=== PATIENT | male | born 1995 | race Caucasian/White ===

== ENCOUNTER 2016-07-12 09:06 | Inpatient (IN) | payer OTHER ==
[~2016-07-12] VITALS: Ht 172.7 cm; Wt 80.3 kg
[~2016-07-12 09:06] MED LIST: ALBU2TAB44; LORA0.5T2 PO; MONT10TA21
[2016-07-12] MEDS ORDERED: ALBUTEROL (0.083%) 2.5MG/3ML NEB HHN STA ×2 (09:34→12:39)
[2016-07-12] MEDS ORDERED: METHYLPREDNISOLONE SOD SUCC 125 MG/2 ML VIAL IV STA (09:34)
[2016-07-12] MEDS ORDERED: IPRATROPIUM BROMIDE (0.02%) 0.5MG/2.5ML NEB HHN STA (09:34)
[2016-07-12] MEDS ORDERED: ALBUTEROL (0.083%) 2.5MG/3ML NEB HHN ONE (11:15)
[2016-07-12] MEDS ORDERED: MAGNESIUM 2 G PREMIX 50 ML IV STA (12:39)
[2016-07-12] MEDS ORDERED: ALBUTEROL (0.083%) 2.5MG/3ML NEB ONE (13:28)
[2016-07-12] MEDS ORDERED: METHYLPREDNISOLONE SOD SUCC 125 MG/2 ML VIAL IV SCH (14:30)
[2016-07-12] MEDS ORDERED: IPRATROPIUM/ALBUTEROL 0.5-3(2.5)MG/3ML NEB INH PRN (14:30)
[2016-07-12] MEDS ORDERED: CLONIDINE 0.1MG TABLET PO PRN (14:30)
[2016-07-12] MEDS ORDERED: DIPHENHYDRAMINE 50MG/ML VIAL IV PRN (14:30)
[2016-07-12] MEDS ORDERED: ONDANSETRON HCL 4MG/2ML VIAL IV PRN (14:30)
[2016-07-12] MEDS ORDERED: ACETAMINOPHEN 325MG TABLET PO PRN (14:30)
[2016-07-12] MEDS ORDERED: HYDROCODONE/ACETAMINOPHEN 5/325MG TABLET PO PRN (14:30)
[2016-07-12] MEDS ORDERED: LEVOFLOXACIN 500MG PREMIX 100ML IV NR (16:45)
[2016-07-12 17:20] LABS: CLARITY URINE CLEAR (CLEAR); COLOR URINE YELLOW (YELLOW); GLUCOSE URINE TRACE (NEGATIVE); KETONES URINE NEGATIVE (NEGATIVE); LEUKOCYTE ESTERASE URINE NEGATIVE (NEGATIVE); NITRITE URINE NEGATIVE (NEGATIVE); OCCULT BLOOD URINE NEGATIVE (NEGATIVE); PH URINE 7.5 (4.5-8.0); PROTEIN URINE NEGATIVE (NEGATIVE); SPECIFIC GRAVITY URINE 1.017 (1.005-1.030); UROBILINOGEN URINE 0.2 E.U./dL (0.2-1.0)
[2016-07-12 17:40] LABS: MUCUS URINE TRACE /lpf (NONE/TRACE); RBC URINE 0-2 /hpf (0-2); SQUAMOUS EPITHELIAL CELL URINE RARE /lpf (RARE/1+); WBC URINE 0-2 /hpf (0-2)
[2016-07-12 17:41] LABS: BACTERIA URINE TRACE
[2016-07-12 17:53] LABS: *AMPHETAMINES SCREEN URINE NEGATIVE (NEGATIVE); *BARBITURATES SCREEN URINE NEGATIVE (NEGATIVE); *BENZODIAZEPINES SCREEN URINE NEGATIVE (NEGATIVE); *COCAINE SCREEN URINE NEGATIVE (NEGATIVE); CANNABINOID URINE SCREEN PRESUMTIVE POSITIVE (NEGATIVE); ECSTASY MDMA SCREEN URINE NEGATIVE (NEGATIVE); METHADONE URINE SCREEN NEGATIVE (NEGATIVE); OPIATES URINE SCREEN NEGATIVE (NEGATIVE); PHENCYCLIDINE URINE SCREEN NEGATIVE (NEGATIVE)
[2016-07-12 22:57] VITALS: BP 116/64
[2016-07-13] VITALS: BP 116/64
[2016-07-13] MEDS ORDERED: LORAZEPAM 0.5MG TABLET PO PRN (02:30)
[2016-07-13] MEDS: IPRATROPIUM/ALBUTEROL 0.5-3(2.5)MG/3ML NEB INH SCH ×3 (03:53→12:45)
[2016-07-13 04:00] VITALS: BP 115/71
[2016-07-13] MEDS ORDERED: METHYLPREDNISOLONE SOD SUCC 125 MG/2 ML VIAL IV SCH (06:00)
[2016-07-13 06:58] LABS: BASOPHILS % 0.1 % (0.0-2.0); EOSINOPHILS % 0.1 % (0.0-5.0); HEMATOCRIT. 44.5 % (42.0-52.0); HEMOGLOBIN. 15.1 g/dL (14.0-18.0); LYMPHOCYTES % 10.5 % (20.0-50.0); MEAN CORPUSCULAR HEMOGLOBIN 30.1 pg (28.0-32.0); MEAN CORPUSCULAR HGB CONC 33.9 g/dL (31.0-37.0); MEAN CORPUSCULAR VOLUME 88.6 fL (80.0-94.0); MEAN PLATELET VOLUME 7.8 fl (7.4-10.4); MONOCYTES % 6.8 % (2.0-8.0); NEUTROPHILS % 82.5 % (40.0-76.0); PLATELET 352 x1000/uL (130-400); RED BLOOD CELL COUNT 5.02 mill/uL (4.7-6.1); RED CELL DISTRIBUTION WIDTH 14.2 % (11.6-14.6); WHITE BLOOD COUNT 8.9 x1000/uL (4.5-11.0)
[2016-07-13 07:09] LABS: ALANINE AMINOTRANSFERASE 38 IU/L (13-61); ALBUMIN 4.1 g/dL (3.4-5.0); ANION GAP 13; CALCIUM 9.2 mg/dL (8.5-10.1); CARBON DIOXIDE 27 mEq/L (21-32); CHLORIDE 103 mEq/L (98-107); HDL CHOLESTEROL 85 mg/dL (40-59); INDEX HEMOLYSI 1 (1-3); INDEX ICTERIC 1 (1-4); INDEX LIPEMIC 1 (1-3); LDL CHOLESTEROL 192 mg/dL (5-100); TRIGLYCERIDE 73 mg/dL (0-150); UREA NITROGEN BLOOD 12 mg/dL (7-21); eGFR > 60 mL/min (>60)
[2016-07-13 08:00] VITALS: BP 102/73
[2016-07-13] MEDS ORDERED: MONTELUKAST SODIUM 10MG TABLET PO SCH (09:00)
[2016-07-13 12:00] VITALS: BP 115/74
[2016-07-13 12:30] VITALS: BP 115/74
[2016-07-13] MEDS ORDERED: LEVOFLOXACIN 500MG PREMIX 100 ML IV SCH (14:00)
[2016-07-13] MEDS ORDERED: ATORVASTATIN CALCIUM 20MG TABLET PO SCH (21:00)
== END 2016-07-13 13:15 | disposition home or self-care (01) | DRG 141 ==
LOC: ER 09:43 → 8WST 14:16
PROVIDERS: ADMIT Internal Medicine; ATTEND Internal Medicine
DX: J45.901 Unspecified asthma with (acute) exacerbation (principal); E78.5 Hyperlipidemia, unspecified; F12.90 Cannabis use, unspecified, uncomplicated; F41.9 Anxiety disorder, unspecified; R73.9 Hyperglycemia, unspecified
CPT/HCPCS: 36415; 71010; 80053; 80061; 80305; 81001; 83036; 85025; 87040; 87086; 94640; 94644; 94664; 96365; 96367; 96375; 96376; 99285; J1200; J1956; J2930; J3475; J7611; J7620

== ENCOUNTER 2016-08-10 12:58 | Emergency (ER) | payer OTHER ==
[~2016-08-10] VITALS: Ht 172.7 cm; Wt 78.0 kg
[2016-08-10] MEDS ORDERED: IPRATROPIUM BROMIDE (0.02%) 0.5MG/2.5ML NEB HHN STA (13:15)
[2016-08-10] MEDS ORDERED: MAGNESIUM 2 G PREMIX 50 ML IV ONE (13:15)
[2016-08-10] MEDS ORDERED: METHYLPREDNISOLONE SOD SUCC 125 MG/2 ML VIAL IV STA (13:15)
[2016-08-10] MEDS ORDERED: ALBUTEROL (0.083%) 2.5MG/3ML NEB HHN STA (13:15)
[2016-08-10 13:26] VITALS: BP 131/88
[2016-08-10 13:32] LABS: BASOPHILS % 0.5 % (0.0-2.0); EOSINOPHILS % 1.9 % (0.0-5.0); HEMATOCRIT. 48.3 % (42.0-52.0); HEMOGLOBIN. 16.5 g/dL (14.0-18.0); LYMPHOCYTES % 9.5 % (20.0-50.0); MEAN CORPUSCULAR HEMOGLOBIN 30.2 pg (28.0-32.0); MEAN CORPUSCULAR VOLUME 88.5 fL (80.0-94.0); MEAN PLATELET VOLUME 7.3 fl (7.4-10.4); MONOCYTES % 6.3 % (2.0-8.0); NEUTROPHILS % 81.8 % (40.0-76.0); PLATELET 305 x1000/uL (130-400); RED BLOOD CELL COUNT 5.46 mill/uL (4.7-6.1); RED CELL DISTRIBUTION WIDTH 13.8 % (11.6-14.6)
[2016-08-10 13:36] LABS: INR 1.1; PROTHROMBIN TIME 11.2 sec
[2016-08-10 13:43] LABS: CARBON DIOXIDE 30 mEq/L (21-32); CHLORIDE 101 mEq/L (98-107); ETHANOL BLOOD < 10 mg/dL
[2016-08-10 13:45] LABS: TROPONIN I < 0.02 ng/mL (0.00-0.04)
[2016-08-10] MEDS ORDERED: IPRATROPIUM/ALBUTEROL 0.5-3(2.5)MG/3ML NEB HHN ONE (15:00)
== END 2016-08-10 15:54 | disposition home or self-care (01) ==
LOC: ER 13:13
DX: J45.901 Unspecified asthma with (acute) exacerbation (principal); F41.9 Anxiety disorder, unspecified; F12.10 Cannabis abuse, uncomplicated
CPT/HCPCS: 36415; 71010; 71020; 80053; 83880; 84484; 85025; 85610; 94640; 96365; 96375; 99291; G0482; J2930; J3475; J7611; J7620

== ENCOUNTER 2016-08-10 19:13 | Inpatient (IN) | payer OTHER ==
[~2016-08-10] VITALS: Ht 170.2 cm; Wt 76.7 kg
[2016-08-10] MEDS ORDERED: ALBUTEROL (0.083%) 2.5MG/3ML NEB HHN STA (20:07)
[2016-08-10] MEDS ORDERED: IPRATROPIUM BROMIDE (0.02%) 0.5MG/2.5ML NEB HHN STA (20:07)
[2016-08-10] MEDS ORDERED: METHYLPREDNISOLONE SOD SUCC 125 MG/2 ML VIAL IV STA (20:07)
[2016-08-10] MEDS ORDERED: MAGNESIUM 2 G PREMIX 50 ML IV ONE (20:15)
[2016-08-10] MEDS ORDERED: SODIUM CHLORIDE 0.9% 1,000 ML IV ONE (23:47)
[2016-08-11] MEDS ORDERED: MAGNESIUM/ALUMINUM HYDROXIDE/SIMETHICONE 30ML UDC PO PRN
[2016-08-11] MEDS ORDERED: CLONIDINE 0.1MG TABLET PO PRN
[2016-08-11] MEDS ORDERED: ACETAMINOPHEN 325MG TABLET PO PRN
[2016-08-11] MEDS ORDERED: ONDANSETRON HCL 4MG/2ML VIAL IV PRN
[2016-08-11] MEDS ORDERED: IPRATROPIUM/ALBUTEROL 0.5-3(2.5)MG/3ML NEB INH PRN
[2016-08-11 00:27] LABS: CHLORIDE 102 mEq/L (98-107)
[2016-08-11 00:37] LABS: CARBON DIOXIDE 24 mEq/L (21-32)
[2016-08-11 03:45] VITALS: BP 116/75
[2016-08-11 04:05] VITALS: BP 116/75
[2016-08-11] MEDS ORDERED: METHYLPREDNISOLONE SOD SUCC 40 MG/ML VIAL IV SCH (06:00)
[2016-08-11 06:52] LABS: CREATINE KINASE 125 IU/L (39-308); CREATINE KINASE MB FRACTION 2.1 ng/mL (0.5-3.6); TROPONIN I < 0.02 ng/mL (0.00-0.04)
[2016-08-11 07:04] LABS: HEMATOCRIT. 44.5 % (42.0-52.0); HEMOGLOBIN. 15.2 g/dL (14.0-18.0); MEAN CORPUSCULAR HEMOGLOBIN 30.5 pg (28.0-32.0); MEAN CORPUSCULAR VOLUME 89.3 fL (80.0-94.0); MEAN PLATELET VOLUME 7.7 fl (7.4-10.4); PLATELET 280 x1000/uL (130-400); RED BLOOD CELL COUNT 4.98 mill/uL (4.7-6.1); RED CELL DISTRIBUTION WIDTH 14.1 % (11.6-14.6)
[2016-08-11 08:00] VITALS: BP 106/73
[2016-08-11] MEDS ORDERED: ENOXAPARIN 40MG/0.4ML SYR SUBCUT SCH (09:00)
[2016-08-11] MEDS ORDERED: BUDESONIDE 0.5MG/2ML NEB HHN SCH (09:00)
[2016-08-11 12:00] VITALS: BP 120/81
[2016-08-11 13:56] LABS: PLATELET ESTIMATE NORMAL
[2016-08-11 14:14] VITALS: BP 120/81
== END 2016-08-11 14:25 | disposition home or self-care (01) | DRG 141 ==
LOC: ER 20:05 → 6WST 23:49 → EDBEDREQTM 23:50 → EDBEDREQ 23:50 → ENRESERV 08-11 01:49
PROVIDERS: ADMIT Internal Medicine; ATTEND Internal Medicine
DX: J45.901 Unspecified asthma with (acute) exacerbation (principal); E78.5 Hyperlipidemia, unspecified; F12.90 Cannabis use, unspecified, uncomplicated; F41.9 Anxiety disorder, unspecified; R73.9 Hyperglycemia, unspecified; Z87.09 Personal history of other diseases of the respiratory system
CPT/HCPCS: 36415; 71010; 80048; 80061; 82550; 82553; 83735; 84484; 85025; 87040; 93970; 94644; 96365; 96375; 99285; J1650; J2920; J2930; J3475; J7030; J7611

== ENCOUNTER 2016-09-03 11:28 | Inpatient (IN) | payer OTHER ==
[~2016-09-03] VITALS: Ht 172.7 cm; Wt 83.9 kg
[2016-09-03] MEDS ORDERED: METHYLPREDNISOLONE SOD SUCC 125 MG/2 ML VIAL IM SCH (14:00)
[2016-09-03] MEDS ORDERED: IPRATROPIUM/ALBUTEROL 0.5-3(2.5)MG/3ML NEB HHN ONE ×2 (14:00→16:45)
[2016-09-03] MEDS ORDERED: IPRATROPIUM/ALBUTEROL 0.5-3(2.5)MG/3ML NEB HHN NR (15:00)
[2016-09-03] MEDS ORDERED: MAGNESIUM 2 G PREMIX 50 ML IV ONE (15:15)
[2016-09-03 15:46] LABS: HEMATOCRIT. 44.4 % (42.0-52.0); HEMOGLOBIN. 15.1 g/dL (14.0-18.0); MEAN CORPUSCULAR HEMOGLOBIN 30.8 pg (28.0-32.0); MEAN CORPUSCULAR VOLUME 90.5 fL (80.0-94.0); MEAN PLATELET VOLUME 7.2 fl (7.4-10.4); PLATELET 323 x1000/uL (130-400); RED BLOOD CELL COUNT 4.91 mill/uL (4.7-6.1); RED CELL DISTRIBUTION WIDTH 14.1 % (11.6-14.6)
[2016-09-03 15:54] LABS: CARBON DIOXIDE 28 mEq/L (21-32); CHLORIDE 99 mEq/L (98-107)
[2016-09-03] MEDS ORDERED: LEVOFLOXACIN 750MG PREMIX 150 ML IV ONE (16:45)
[2016-09-03 16:50] LABS: PLATELET ESTIMATE NORMAL
[2016-09-03 17:17] LABS: BG BASE EXCESS -3.1 mmol/L (-2.0-2.0); BG BILEVEL POS AIRWAY PRESSURE 15/5; BG CARBOXYHEMOGLOBIN 0.4 % (0.5-1.5); BG DEOXYHEMOGLOBIN 0.4 % (0.0-5.0); BG HCO3 ACT 23.3 mmol/L (22.0-26.0); BG METHEMOGLOBIN 0.5 % (0.0-1.5); BG OXYGEN SATURATION 99.6 % (92.0-98.5); BG OXYHEMOGLOBIN 98.7 % (94.0-97.0); BG PH 7.314 (7.350-7.450); BG SAMPLE SITE RIGHT RADIAL; BG TOTAL HEMOGLOBIN 13.8 g/dL (12.0-18.0); BG VENT MODE MASK - BIPAP; BG VENT RATE 16 set
[2016-09-03] MEDS ORDERED: GUAIFENESIN 200MG/10ML SUGAR FREE UDC PO PRN (18:15)
[2016-09-03] MEDS ORDERED: ACETAMINOPHEN 325MG TABLET PO PRN (18:15)
[2016-09-03] MEDS ORDERED: IPRATROPIUM/ALBUTEROL 0.5-3(2.5)MG/3ML NEB INH PRN (18:15)
[2016-09-03] MEDS ORDERED: DOCUSATE SODIUM 100MG CAPSULE PO PRN (18:15)
[2016-09-03] MEDS ORDERED: ONDANSETRON HCL 4MG/2ML VIAL IV PRN (18:15)
[2016-09-03] MEDS ORDERED: MAGNESIUM/ALUMINUM HYDROXIDE/SIMETHICONE 30ML UDC PO PRN (18:15)
[2016-09-03] MEDS ORDERED: CLONIDINE 0.1MG TABLET PO PRN (18:15)
[2016-09-03] MEDS ORDERED: CEFTRIAXONE 1 G PREMIX 50 ML IV NR (19:09)
[2016-09-03 20:19] LABS: CHLORIDE 104 mEq/L (98-107)
[2016-09-03 20:25] LABS: CARBON DIOXIDE 21 mEq/L (21-32)
[2016-09-03] MEDS ORDERED: VENL-179 PO (22:10)
[2016-09-03 22:53] LABS: CLARITY URINE CLEAR (CLEAR); COLOR URINE YELLOW (YELLOW); KETONES URINE NEGATIVE (NEGATIVE); LEUKOCYTE ESTERASE URINE NEGATIVE (NEGATIVE); NITRITE URINE NEGATIVE (NEGATIVE); OCCULT BLOOD URINE NEGATIVE (NEGATIVE); PROTEIN URINE NEGATIVE (NEGATIVE); SPECIFIC GRAVITY URINE 1.022 (1.005-1.030); UROBILINOGEN URINE 0.2 E.U./dL (0.2-1.0)
[2016-09-03 23:05] LABS: *AMPHETAMINES SCREEN URINE NEGATIVE (NEGATIVE); *BARBITURATES SCREEN URINE NEGATIVE (NEGATIVE); *BENZODIAZEPINES SCREEN URINE NEGATIVE (NEGATIVE); *COCAINE SCREEN URINE NEGATIVE (NEGATIVE); CANNABINOID URINE SCREEN PRESUMTIVE POSITIVE (NEGATIVE); METHADONE URINE SCREEN NEGATIVE (NEGATIVE); OPIATES URINE SCREEN PRESUMTIVE POSITIVE (NEGATIVE); PHENCYCLIDINE URINE SCREEN NEGATIVE (NEGATIVE)
[2016-09-03 23:23] LABS: CREATINE KINASE 385 IU/L (39-308); CREATINE KINASE MB FRACTION 3.6 ng/mL (0.5-3.6); TROPONIN I < 0.02 ng/mL (0.00-0.04)
[2016-09-03] MEDS: METHYLPREDNISOLONE SOD SUCC 40 MG/ML VIAL IV SCH (23:27)
[2016-09-03] MEDS: AZITHROMYCIN 500 MG TABLET PO SCH (23:27)
[2016-09-03] MEDS: SODIUM CHLORIDE 0.9% 1,000 ML IV SCH (23:28)
[2016-09-04] MEDS ORDERED: CEFTRIAXONE 1 G PREMIX 50 ML IV SCH
[2016-09-04] MEDS: IPRATROPIUM/ALBUTEROL 0.5-3(2.5)MG/3ML NEB INH SCH ×6 (00:08→21:03)
[2016-09-04 05:26] LABS: HEMATOCRIT. 40.5 % (42.0-52.0); HEMOGLOBIN. 13.6 g/dL (14.0-18.0); MEAN CORPUSCULAR HEMOGLOBIN 30.2 pg (28.0-32.0); MEAN CORPUSCULAR VOLUME 89.8 fL (80.0-94.0); MEAN PLATELET VOLUME 7.4 fl (7.4-10.4); PLATELET 278 x1000/uL (130-400); RED BLOOD CELL COUNT 4.51 mill/uL (4.7-6.1); RED CELL DISTRIBUTION WIDTH 14.2 % (11.6-14.6)
[2016-09-04] MEDS: METHYLPREDNISOLONE SOD SUCC 40 MG/ML VIAL IV SCH ×3 (05:57→21:25)
[2016-09-04 06:15] LABS: CREATINE KINASE 365 IU/L (39-308); CREATINE KINASE MB FRACTION 3.9 ng/mL (0.5-3.6); HDL CHOLESTEROL 59 mg/dL (40-59); LDL CHOLESTEROL 143 mg/dL (5-100); TROPONIN I < 0.02 ng/mL (0.00-0.04)
[2016-09-04] MEDS: AZITHROMYCIN 500 MG TABLET PO SCH (08:51)
[2016-09-04] MEDS: ENOXAPARIN 40MG/0.4ML SYR SUBCUT SCH (08:52)
[2016-09-04] MEDS: SODIUM CHLORIDE 0.9% 1,000 ML IV SCH (12:38)
[2016-09-04] MEDS: LORAZEPAM 0.5MG TABLET PO PRN ×2 (14:31→21:25)
[2016-09-04] MEDS: VENLAFAXINE HCL 37.5MG SR CAPSULE 24HR PO SCH (16:09)
[2016-09-04] MEDS ORDERED: ATORVASTATIN CALCIUM 20MG TABLET PO SCH (21:00)
[2016-09-05] MEDS ORDERED: CEFTRIAXONE 1 G PREMIX 50 ML IV SCH
[2016-09-05] MEDS: IPRATROPIUM/ALBUTEROL 0.5-3(2.5)MG/3ML NEB INH SCH ×4 (00:19→13:05)
[2016-09-05] MEDS: SODIUM CHLORIDE 0.9% 1,000 ML IV SCH (00:30)
[2016-09-05] MEDS: METHYLPREDNISOLONE SOD SUCC 40 MG/ML VIAL IV SCH ×2 (05:15→13:19)
[2016-09-05 08:20] LABS: PLATELET ESTIMATE NORMAL
[2016-09-05 08:44] LABS: BG BASE EXCESS 0.3 mmol/L (-2.0-2.0); BG CARBOXYHEMOGLOBIN 0.3 % (0.5-1.5); BG FRACTION INSPIRED OXYGEN 21; BG HCO3 ACT 23.2 mmol/L (22.0-26.0); BG METHEMOGLOBIN 0.4 % (0.0-1.5); BG OXYHEMOGLOBIN 94.3 % (94.0-97.0); BG PCO2 32.9 mmHg (35.0-45.0); BG PH 7.466 (7.350-7.450); BG PO2 72.7 mmHg (75.0-100.0); BG SAMPLE SITE RIGHT BRACHIAL; BG TOTAL HEMOGLOBIN 15.3 g/dL (12.0-18.0); BG VENT MODE ROOM AIR
[2016-09-05] MEDS: VENLAFAXINE HCL 37.5MG SR CAPSULE 24HR PO SCH (09:01)
[2016-09-05] MEDS: AZITHROMYCIN 500 MG TABLET PO SCH (09:01)
[2016-09-05] MEDS: ENOXAPARIN 40MG/0.4ML SYR SUBCUT SCH (09:01)
[2016-09-05 10:17] LABS: HEMATOCRIT. 42.5 % (42.0-52.0); HEMOGLOBIN. 14.3 g/dL (14.0-18.0); MEAN CORPUSCULAR HEMOGLOBIN 30.1 pg (28.0-32.0); MEAN CORPUSCULAR VOLUME 89.8 fL (80.0-94.0); MEAN PLATELET VOLUME 7.4 fl (7.4-10.4); PLATELET 314 x1000/uL (130-400); RED BLOOD CELL COUNT 4.74 mill/uL (4.7-6.1); RED CELL DISTRIBUTION WIDTH 14.5 % (11.6-14.6)
[2016-09-05 10:24] LABS: CHLORIDE 107 mEq/L (98-107)
[2016-09-05 10:32] LABS: CARBON DIOXIDE 23 mEq/L (21-32)
[2016-09-05 11:16] LABS: PLATELET ESTIMATE NORMAL
[2016-09-05 16:00] VITALS: BP 129/76
[2017-02-05] MEDS ORDERED: INHALER (15:21)
== END 2016-09-05 16:50 | disposition home or self-care (01) | DRG 133 ==
LOC: ER 11:35 → ENRESERV 19:10 → 5EST 22:10
PROVIDERS: ADMIT Internal Medicine; ATTEND Internal Medicine
PROC: 5A09357 Assistance with Respiratory Ventilation, Less than 24 Consecutive Hours, Continuous Positive Airway Pressure (ICD-10-PCS; principal; 2016-09-03)
DX: J96.20 Acute and chronic respiratory failure, unspecified whether with hypoxia or hypercapnia (principal); M62.82 Rhabdomyolysis; R65.10 Systemic inflammatory response syndrome (SIRS) of non-infectious origin without acute organ dysfunction; J45.901 Unspecified asthma with (acute) exacerbation; F41.9 Anxiety disorder, unspecified; D72.829 Elevated white blood cell count, unspecified; I10 Essential (primary) hypertension; J06.9 Acute upper respiratory infection, unspecified; F32.9 Major depressive disorder, single episode, unspecified; F12.90 Cannabis use, unspecified, uncomplicated
CPT/HCPCS: 36415; 36600; 71010; 80048; 80053; 80061; 80305; 81003; 82375; 82550; 82553; 82805; 83605; 83735; 84443; 84484; 85025; 87040; 87070; 94640; 94660; 96365; 96366; 99291; J0696; J1650; J1956; J2920; J2930; J3475; J7030; J7620

== ENCOUNTER 2016-11-06 23:56 | Emergency (ER) | payer OTHER, MEDICAID ==
[~2016-11-06] VITALS: Ht 172.7 cm; Wt 79.0 kg
[~2016-11-06 23:56] MED LIST changes: +VENL-179 PO
[2016-11-07] MEDS ORDERED: PREDNISONE 20MG TABLET PO STA (00:18)
[2016-11-07] MEDS ORDERED: ALBUTEROL (0.083%) 2.5MG/3ML NEB HHN STA ×2 (00:18→02:10)
[2016-11-07] MEDS ORDERED: IPRATROPIUM BROMIDE (0.02%) 0.5MG/2.5ML NEB HHN STA ×2 (00:18→02:10)
[2016-11-07 02:30] VITALS: BP 123/80
== END 2016-11-07 03:42 | disposition home or self-care (01) ==
LOC: ER 23:56
DX: J45.901 Unspecified asthma with (acute) exacerbation (principal); R03.0 Elevated blood-pressure reading, without diagnosis of hypertension
CPT/HCPCS: 94640; 99284; J7512; J7611; Z7610

== ENCOUNTER 2016-11-26 08:51 | Emergency (ER) | payer OTHER, MEDICAID ==
[~2016-11-26] VITALS: Ht 172.7 cm; Wt 79.0 kg
[2016-11-26] MEDS ORDERED: METHYLPREDNISOLONE SOD SUCC 125 MG/2 ML VIAL IV STA (10:07)
[2016-11-26] MEDS ORDERED: ALBUTEROL (0.083%) 2.5MG/3ML NEB HHN STA ×2 (10:07→10:58)
[2016-11-26] MEDS ORDERED: IPRATROPIUM BROMIDE (0.02%) 0.5MG/2.5ML NEB HHN STA ×2 (10:07→10:58)
[2016-11-26 12:15] VITALS: BP 119/69
== END 2016-11-26 12:16 | disposition home or self-care (01) ==
LOC: ER 08:51
DX: J45.901 Unspecified asthma with (acute) exacerbation (principal); F41.9 Anxiety disorder, unspecified; F12.10 Cannabis abuse, uncomplicated
CPT/HCPCS: 94640; 96374; 99284; J2930; J7611; Z7610

== ENCOUNTER 2017-01-13 21:27 | Emergency (ER) | payer OTHER ==
[~2017-01-13] VITALS: Ht 172.7 cm; Wt 81.0 kg
[2017-01-13] MEDS ORDERED: IPRATROPIUM BROMIDE (0.02%) 0.5MG/2.5ML NEB HHN STA ×3 (22:04→23:03)
[2017-01-13] MEDS ORDERED: ALBUTEROL (0.083%) 2.5MG/3ML NEB HHN STA ×3 (22:04→23:03)
[2017-01-13] MEDS ORDERED: DEXAMETHASONE 4MG/ML 1ML VIAL IM ONE (22:15)
[2017-01-13] MEDS ORDERED: MAGNESIUM 2 G PREMIX 50 ML IV ONE (22:45)
[2017-01-13] MEDS ORDERED: DEXAMETHASONE 10 MG/ML VIAL IV ONE (22:45)
[2017-01-14] MEDS ORDERED: PREDNISONE 20MG TABLET PO ONE
[2017-01-14 01:00] VITALS: BP 106/74
== END 2017-01-14 01:05 | disposition home or self-care (01) ==
LOC: ER 21:27
DX: J45.901 Unspecified asthma with (acute) exacerbation (principal); F41.9 Anxiety disorder, unspecified
CPT/HCPCS: 71010; 87804; 94640; 96374; 99285; J1100; J7512; J7611; Z7610; J3475

== ENCOUNTER 2017-04-04 13:12 | Emergency (ER) | payer MEDICAID, OTHER ==
[~2017-04-04] VITALS: Ht 172.7 cm; Wt 84.0 kg
[~2017-04-04 13:12] MED LIST changes: +INHALER
[2017-04-04] MEDS ORDERED: ALBUTEROL (0.083%) 2.5MG/3ML NEB HHN STA (13:28)
[2017-04-04] MEDS ORDERED: IPRATROPIUM BROMIDE (0.02%) 0.5MG/2.5ML NEB HHN STA (13:28)
[2017-04-04] MEDS ORDERED: PREDNISONE 20MG TABLET PO STA (13:28)
[2017-04-04 20:15] VITALS: BP 109/73
== END 2017-04-04 20:15 | disposition home or self-care (01) ==
LOC: ER 14:23
DX: J45.901 Unspecified asthma with (acute) exacerbation (principal); F41.9 Anxiety disorder, unspecified
CPT/HCPCS: 94640; 99283; J7512; J7611

== ENCOUNTER 2017-07-24 09:05 | Emergency (ER) | payer MEDICAID, OTHER ==
[~2017-07-24] VITALS: Ht 172.7 cm; Wt 91.0 kg
[2017-07-24] MEDS ORDERED: IPRATROPIUM BROMIDE (0.02%) 0.5MG/2.5ML NEB HHN STA (09:16)
[2017-07-24] MEDS ORDERED: METHYLPREDNISOLONE SOD SUCC 125 MG/2 ML VIAL IV STA (09:16)
[2017-07-24] MEDS ORDERED: ALBUTEROL (0.083%) 2.5MG/3ML NEB HHN STA ×2 (09:16→11:39)
[2017-07-24] MEDS ORDERED: MAGNESIUM 2 G PREMIX 50 ML IV STA (09:16)
[2017-07-24] MEDS ORDERED: ALBUTEROL (0.083%) 2.5MG/3ML NEB ONE (09:24)
[2017-07-24] MEDS ORDERED: IPRATROPIUM BROMIDE (0.02%) 0.5MG/2.5ML NEB ONE (09:24)
[2017-07-24 12:30] VITALS: BP 140/76
== END 2017-07-24 12:35 | disposition home or self-care (01) ==
LOC: ER 10:05
DX: J45.901 Unspecified asthma with (acute) exacerbation (principal); F41.9 Anxiety disorder, unspecified
CPT/HCPCS: 71045; 96365; 96375; 99285; J2930; J3475; J7611

== ENCOUNTER 2020-01-05 05:31 | Emergency (ER) | payer OTHER ==
[~2020-01-05] VITALS: Ht 170.2 cm; Wt 83.0 kg
[2020-01-05] MEDS ORDERED: IPRATROPIUM BROMIDE (0.02%) 0.5MG/2.5ML NEB HHN STA (05:51)
[2020-01-05] MEDS ORDERED: METHYLPREDNISOLONE SOD SUCC 125 MG/2 ML VIAL IV STA (05:51)
[2020-01-05] MEDS ORDERED: ALBUTEROL (0.083%) 2.5MG/3ML NEB HHN STA (05:51)
[2020-01-05 06:08] LABS: BASOPHILS % 0.7 % (0.0-2.0); HEMATOCRIT. 46.9 % (42.0-52.0); HEMOGLOBIN. 15.9 g/dL (14.0-18.0); LYMPHOCYTES % 27.2 % (20.0-50.0); MEAN CORPUSCULAR HEMOGLOBIN 30.5 pg (28.0-32.0); MEAN CORPUSCULAR VOLUME 90.2 fL (80.0-94.0); MEAN PLATELET VOLUME 7.6 fl (7.4-10.4); MONOCYTES % 7.9 % (2.0-8.0); NEUTROPHILS % 58.2 % (40.0-76.0); PLATELET 322 x1000/uL (130-400); RED BLOOD CELL COUNT 5.21 mill/uL (4.7-6.1)
[2020-01-05 06:26] LABS: CHLORIDE 105 mEq/L (98-107)
[2020-01-05] MEDS ORDERED: ALBUTEROL (0.5%) 2.5MG/0.5ML NEB HHN ONE (08:30)
[2020-01-05] MEDS ORDERED: MAGNESIUM 2 G PREMIX 50 ML IV ONE (10:15)
[2020-01-05 11:06] VITALS: BP 123/75
== END 2020-01-05 11:27 | disposition short-term general hospital (02) ==
LOC: ER 05:31 → CANBEDREQ 14:01
DX: J45.901 Unspecified asthma with (acute) exacerbation (principal); F41.9 Anxiety disorder, unspecified; Z79.899 Other long term (current) drug therapy
CPT/HCPCS: 36415; 71045; 80053; 85025; 93005; 94640; 96365; 96375; 99285; J2930; J3475; Z7610

== ENCOUNTER 2021-09-06 00:53 | Emergency (ER) | payer OTHER ==
[~2021-09-06] VITALS: Ht 172.7 cm; Wt 75.0 kg
[2021-09-06] MEDS ORDERED: METHYLPREDNISOLONE SOD SUCC 125 MG/2 ML VIAL IV STA (01:15)
[2021-09-06] MEDS ORDERED: ALBUTEROL (0.083%) 2.5MG/3ML NEB HHN STA (01:15)
[2021-09-06] MEDS ORDERED: IPRATROPIUM BROMIDE (0.02%) 0.5MG/2.5ML NEB HHN STA (01:15)
[2021-09-06] MEDS ORDERED: P20 MT (03:10)
[2021-09-06] MEDS ORDERED: ALBU90AE INH (03:10)
[2021-09-06 04:16] VITALS: BP 117/77
== END 2021-09-06 04:17 | disposition home or self-care (01) ==
LOC: ER 00:53
DX: J45.901 Unspecified asthma with (acute) exacerbation (principal); F41.9 Anxiety disorder, unspecified
CPT/HCPCS: 94644; 96374; 99285; J2930; Z7610

== ENCOUNTER 2021-11-21 01:03 | Emergency (ER) | payer OTHER ==
[~2021-11-21] VITALS: Ht 172.7 cm; Wt 68.9 kg
[~2021-11-21 01:03] MED LIST changes: +ALBU90AE INH; +P20 MT
[2021-11-21] MEDS ORDERED: ALBUTEROL (0.083%) 2.5MG/3ML NEB HHN STA ×3 (01:21→03:57)
[2021-11-21] MEDS ORDERED: IPRATROPIUM BROMIDE (0.02%) 0.5MG/2.5ML NEB HHN STA ×3 (01:21→03:57)
[2021-11-21] MEDS ORDERED: METHYLPREDNISOLONE SOD SUCC 125 MG/2 ML VIAL IM STA (01:21)
[2021-11-21] MEDS ORDERED: LORAZEPAM 1MG TABLET PO ONE (03:00)
[2021-11-21] MEDS ORDERED: P50 PO (03:06)
[2021-11-21] MEDS ORDERED: ALBU18HF2 IH (03:06)
[2021-11-21] MEDS ORDERED: MOME13HF11 INH (03:06)
[2021-11-21 05:34] LABS: CHLORIDE 103 mEq/L (98-107)
[2021-11-21 05:39] LABS: HEMATOCRIT. 43.2 % (42.0-52.0); HEMOGLOBIN. 14.6 g/dL (14.0-18.0); MEAN CORPUSCULAR HEMOGLOBIN 30.4 pg (28.0-32.0); MEAN PLATELET VOLUME 7.5 fl (7.4-10.4); PLATELET 264 x1000/uL (130-400); RED CELL DISTRIBUTION WIDTH 14.6 % (11.6-14.6)
[2021-11-21 06:00] VITALS: BP 118/70
[2021-11-21 07:10] LABS: PLATELET ESTIMATE NORMAL
== END 2021-11-21 06:05 | disposition home or self-care (01) ==
LOC: ER 01:03 → CANBEDREQ 08:42
DX: J45.901 Unspecified asthma with (acute) exacerbation (principal); F41.9 Anxiety disorder, unspecified; Z79.899 Other long term (current) drug therapy
CPT/HCPCS: 36415; 71045; 80053; 85025; 94640; 96372; 99284; J2930; Z7610

== ENCOUNTER 2022-08-22 01:32 | Emergency (ER) | payer OTHER ==
[~2022-08-22] VITALS: Ht 172.7 cm; Wt 73.0 kg
[~2022-08-22 01:32] MED LIST changes: +ALBU18HF2 IH; +ALBU2; -ALBU2TAB44; +MOME13HF11 INH; +MONT-46; -MONT10TA21; +P50 PO
[2022-08-22 01:47] VITALS: BP 125/91; TEMP 98.4
[2022-08-22] MEDS ORDERED: ALBUTEROL (0.083%) 2.5MG/3ML NEB HHN STA (03:46)
[2022-08-22] MEDS ORDERED: IPRATROPIUM BROMIDE (0.02%) 0.5MG/2.5ML NEB HHN STA (03:46)
[2022-08-22] MEDS ORDERED: METHYLPREDNISOLONE SOD SUCC 125 MG/2 ML VIAL IM STA (03:46)
[2022-08-22 04:06] VITALS: PULSE 88; RESP 20; O2SAT 96
[2022-08-22] MEDS ORDERED: P50 PO (04:58)
[2022-08-22] MEDS ORDERED: ALBU18HF2 IH (04:58)
== END 2022-08-22 05:10 | disposition home or self-care (01) ==
LOC: ER 01:32
DX: J45.901 Unspecified asthma with (acute) exacerbation (principal); F41.9 Anxiety disorder, unspecified
CPT/HCPCS: 93005; 94640; 96372; 99283; J2930; Z7610

== ENCOUNTER 2023-11-08 00:19 | Inpatient (IN) | payer MEDICAID, OTHER ==
[~2023-11-08] VITALS: Ht 172.7 cm; Wt 68.0 kg
[2023-11-08] VITALS (14 sets, daily range): BP systolic 106–114; BP diastolic 73–84; PULSE 103–121; RESP 18–29; TEMP 36.78072–37.11408; O2SAT 92–97
[2023-11-08] MEDS: MAGNESIUM 2 G PREMIX 50 ML IV ONE (00:33)
[2023-11-08] MEDS: METHYLPREDNISOLONE SOD SUCC 125MG/2ML (ACT-O-VIAL) IV STA (00:33)
[2023-11-08 00:34] LABS: BASOPHILS % 0.5 % (0.0-2.0); EOSINOPHILS % 8.2 % (0.0-5.0); HEMATOCRIT. 45.1 % (42.0-52.0); HEMOGLOBIN. 15.1 g/dL (14.0-18.0); LYMPHOCYTES % 24.6 % (20.0-50.0); MEAN CORPUSCULAR HEMOGLOBIN 30.6 pg (28.0-32.0); MEAN CORPUSCULAR HGB CONC 33.4 g/dL (31.0-37.0); MEAN CORPUSCULAR VOLUME 91.7 fL (80.0-94.0); MEAN PLATELET VOLUME 7.7 fl (7.4-10.4); MONOCYTES % 10.7 % (2.0-8.0); PLATELET 342 x1000/uL (130-400); RED BLOOD CELL COUNT 4.92 mill/uL (4.7-6.1); RED CELL DISTRIBUTION WIDTH 14.5 % (11.6-14.6); WHITE BLOOD COUNT 12.3 x1000/uL (4.5-11.0)
[2023-11-08] MEDS: SODIUM CHLORIDE 0.9% 1,000 ML IV ONE (00:34)
[2023-11-08] MEDS: ALBUTEROL (0.083%) 2.5MG/3ML NEB HHN STA (00:38)
[2023-11-08 00:39] LABS: CHLORIDE 102 mEq/L (98-107); POTASSIUM 3.9 mEq/L (3.5-5.1); SODIUM 139 mEq/L (136-145)
[2023-11-08] MEDS: IPRATROPIUM BROMIDE (0.02%) 0.5MG/2.5ML NEB HHN STA (00:39)
[2023-11-08 00:40] LABS: CALCIUM 9.2 mg/dL (8.7-10.4); CARBON DIOXIDE 33 mEq/L (21-32)
[2023-11-08 00:45] LABS: CREATININE 1.6 mg/dL (0.6-1.3); GLUCOSE 162 mg/dL (70-105); UREA NITROGEN BLOOD 9 mg/dL (9-23)
[2023-11-08 00:58] LABS: TROPONIN I HIGH SENSITIVITY < 4 ng/L (3.0-53)
[2023-11-08 00:59] LABS: ETHANOL BLOOD < 10 mg/dL (<10)
[2023-11-08] MEDS: ACETAMINOPHEN 1000MG/100ML 100 ML IV ONE (01:03)
[2023-11-08] MEDS: ALBUTEROL (0.5%) 2.5MG/0.5ML NEB HHN NR (02:10)
[2023-11-08] MEDS: EPINEPHRINE 1:1000 1 MG/ML AMP SUBCUT NR (02:14)
[2023-11-08] MEDS ORDERED: ONDANSETRON HCL 4MG/2ML INJ IV PRN (08:30)
[2023-11-08] MEDS ORDERED: CLONIDINE 0.1MG TABLET PO PRN (08:30)
[2023-11-08] MEDS ORDERED: ACETAMINOPHEN 325MG TABLET PO PRN (08:30)
[2023-11-08] MEDS ORDERED: MAGNESIUM/ALUMINUM HYDROXIDE/SIMETHICONE 30ML UDC PO PRN (09:00)
[2023-11-08] MEDS ORDERED: BUDESONIDE 0.25MG/2ML NEB HHN SCH (09:00)
[2023-11-08] MEDS ORDERED: DOCUSATE SODIUM 100MG CAPSULE PO PRN (09:30)
[2023-11-08] MEDS ORDERED: BUDESONIDE 0.5MG/2ML NEB HHN SCH (10:15)
[2023-11-08 12:35] LABS: THYROID STIMULATING HORMONE 0.11 uIU/mL (0.55-4.78)
[2023-11-08] MEDS: IPRATROPIUM/ALBUTEROL 0.5-3(2.5)MG/3ML NEB HHN SCH (13:46)
[2023-11-08] MEDS: LORAZEPAM 0.5MG TABLET PO PRN (14:14)
[2023-11-08] MEDS: AZITHROMYCIN 500MG/250ML 250 ML IV SCH (14:24)
[2023-11-08] MEDS: METHYLPREDNISOLONE SOD SUCC 125MG/2ML (ACT-O-VIAL) IV SCH (14:24)
[2023-11-08] MEDS: CEFTRIAXONE 1GM/50ML 50 ML IV SCH (14:24)
[2023-11-08] MEDS: ENOXAPARIN 40MG/0.4ML SYR SUBCUT SCH (14:26)
[2023-11-08 15:05] LABS: CLARITY URINE CLEAR (CLEAR); COLOR URINE YELLOW (YELLOW); GLUCOSE URINE TRACE (NEGATIVE); KETONES URINE 1+ (NEGATIVE); LEUKOCYTE ESTERASE URINE NEGATIVE (NEGATIVE); NITRITE URINE NEGATIVE (NEGATIVE); OCCULT BLOOD URINE NEGATIVE (NEGATIVE); PH URINE 6.5 (4.5-8.0); PROTEIN URINE NEGATIVE (NEGATIVE); SPECIFIC GRAVITY URINE 1.018 (1.005-1.030); UROBILINOGEN URINE 0.2 E.U./dL (0.2-1.0)
[2023-11-08 15:24] LABS: MUCUS URINE TRACE /lpf (NONE/TRACE)
[2023-11-08 15:25] LABS: *AMPHETAMINES SCREEN URINE NEGATIVE (NEGATIVE); *BARBITURATES SCREEN URINE NEGATIVE (NEGATIVE); *BENZODIAZEPINES SCREEN URINE NEGATIVE (NEGATIVE); *COCAINE SCREEN URINE NEGATIVE (NEGATIVE); CANNABINOID URINE SCREEN PRESUMPTIVE POSITIVE (NEGATIVE); ECSTASY MDMA SCREEN URINE NEGATIVE (NEGATIVE); METHADONE URINE SCREEN NEGATIVE (NEGATIVE); OPIATES URINE SCREEN NEGATIVE (NEGATIVE); PHENCYCLIDINE URINE SCREEN NEGATIVE (NEGATIVE); WBC URINE 0-2 /hpf (0-2)
[2023-11-08 15:26] LABS: RBC URINE 0-2 /hpf (0-2)
[2023-11-08 15:29] LABS: BACTERIA URINE TRACE; SQUAMOUS EPITHELIAL CELL URINE RARE /lpf (RARE/1+)
[2023-11-08] MEDS: FAMOTIDINE 20MG TABLET PO SCH (22:07)
[2023-11-08] MEDS: METHYLPREDNISOLONE SOD SUCC 40MG/ML (ACT-O-VIAL) IV SCH (22:08)
[2023-11-09] VITALS (7 sets, daily range): BP systolic 110–121; BP diastolic 71–88; PULSE 86–124; RESP 22–30; TEMP 36.83628–37.05852; O2SAT 16–94
[2023-11-09 07:24] LABS: HEMATOCRIT. 44.6 % (42.0-52.0); HEMOGLOBIN. 14.7 g/dL (14.0-18.0); MEAN CORPUSCULAR HEMOGLOBIN 30.1 pg (28.0-32.0); MEAN CORPUSCULAR VOLUME 91.2 fL (80.0-94.0); MEAN PLATELET VOLUME 8.1 fl (7.4-10.4); PLATELET 301 x1000/uL (130-400); RED BLOOD CELL COUNT 4.89 mill/uL (4.7-6.1); RED CELL DISTRIBUTION WIDTH 14.8 % (11.6-14.6); WHITE BLOOD COUNT 11.1 x1000/uL (4.5-11.0)
[2023-11-09 07:32] LABS: DIFFERENTIAL COMMENT 1
[2023-11-09 07:33] LABS: CARBON DIOXIDE 27 mEq/L (21-32); CHLORIDE 107 mEq/L (98-107); SODIUM 142 mEq/L (136-145)
[2023-11-09 07:34] LABS: CALCIUM 9.7 mg/dL (8.7-10.4)
[2023-11-09 07:38] LABS: CREATININE 0.8 mg/dL (0.6-1.3); GLUCOSE 113 mg/dL (70-105)
[2023-11-09 07:39] LABS: UREA NITROGEN BLOOD 13 mg/dL (9-23)
[2023-11-09 08:27] LABS: BG BASE EXCESS 0.4 mmol/L (-2.0-3.0); BG CARBOXYHEMOGLOBIN 0.9 % (0.5-1.5); BG DEOXYHEMOGLOBIN 5.6 % (0.0-5.0); BG FRACTION INSPIRED OXYGEN 21; BG HCO3 ACT 23.6 mmol/L (21.0-28.0); BG METHEMOGLOBIN 0.1 % (0.5-1.5); BG OXYGEN SATURATION 94.3 % (94.0-98.0); BG OXYHEMOGLOBIN 93.4 % (94.0-98.0); BG PCO2 34.1 mmHg (35.0-48.0); BG PH 7.458 (7.350-7.450); BG PO2 65.7 mmHg (83.0-108.0); BG SAMPLE SITE RIGHT BRACHIAL; BG VENT MODE ROOM AIR
[2023-11-09] MEDS: AZITHROMYCIN 500MG/250ML 250 ML IV SCH (08:55)
[2023-11-09] MEDS: CEFTRIAXONE 1GM/50ML 50 ML IV SCH (08:55)
[2023-11-09 10:31] LABS: PLATELET ESTIMATE NORMAL
== END 2023-11-09 18:33 | disposition home or self-care (01) | DRG 133 ==
LOC: ER 00:21 → 5EST 02:02
PROVIDERS: ADMIT Internal Medicine; ATTEND Internal Medicine
PROC: 5A09357 Assistance with Respiratory Ventilation, Less than 24 Consecutive Hours, Continuous Positive Airway Pressure (ICD-10-PCS; principal; 2023-11-08)
DX: J96.01 Acute respiratory failure with hypoxia (principal); N17.9 Acute kidney failure, unspecified; J45.901 Unspecified asthma with (acute) exacerbation; R65.10 Systemic inflammatory response syndrome (SIRS) of non-infectious origin without acute organ dysfunction; Z20.822 Contact with and (suspected) exposure to COVID-19; F12.10 Cannabis abuse, uncomplicated; F17.290 Nicotine dependence, other tobacco product, uncomplicated; F41.9 Anxiety disorder, unspecified; R73.9 Hyperglycemia, unspecified; Z79.51 Long term (current) use of inhaled steroids; Z79.899 Other long term (current) drug therapy; Z86.711 Personal history of pulmonary embolism
CPT/HCPCS: 36415; 36600; 71045; 78580; 80048; 80305; 80320; 81003; 82375; 82805; 82962; 83036; 83880; 84443; 84480; 84484; 85025; 85379; 87426; 93005; 93306; 93970; 94640; 94660; 99285; J0456; J0696; J1650; J2919; J2920; J3475; J3490; J7030; J7626; G0480; J0131

== ENCOUNTER 2024-08-01 05:13 | Emergency (ER) | payer MEDICAID, OTHER ==
[~2024-08-01] VITALS: Ht 172.7 cm; Wt 82.0 kg
[~2024-08-01 05:13] MED LIST changes: -ALBU2; -ALBU90AE INH; -INHALER; -LORA0.5T2 PO; -P20 MT; -P50 PO
[2024-08-01 05:15] VITALS: O2SAT 100
[2024-08-01] MEDS: IPRATROPIUM BROMIDE (0.02%) 0.5MG/2.5ML NEB HHN STA (05:30)
[2024-08-01] MEDS: ALBUTEROL (0.083%) 2.5MG/3ML NEB HHN STA (05:30)
[2024-08-01 05:33] VITALS: PULSE 103; RESP 20; O2SAT 99
[2024-08-01] MEDS: MAGNESIUM 2 G PREMIX 50 ML IV ONE (06:03)
[2024-08-01] MEDS: METHYLPREDNISOLONE SOD SUCC 125MG/2ML (ACT-O-VIAL) IV STA (06:03)
[2024-08-01 06:57] LABS: BASOPHILS % 0.3 % (0.0-2.0); EOSINOPHILS % 0.2 % (0.0-5.0); HEMATOCRIT. 45.6 % (42.0-52.0); HEMOGLOBIN. 15.4 g/dL (14.0-18.0); LYMPHOCYTES % 10.2 % (20.0-50.0); MEAN CORPUSCULAR HEMOGLOBIN 30.7 pg (28.0-32.0); MEAN CORPUSCULAR HGB CONC 33.8 g/dL (31.0-37.0); MEAN CORPUSCULAR VOLUME 90.8 fL (80.0-94.0); MEAN PLATELET VOLUME 8.6 fl (7.4-10.4); MONOCYTES % 6.8 % (2.0-8.0); NEUTROPHILS % 82.5 % (40.0-76.0); PLATELET 333 x1000/uL (130-400); RED BLOOD CELL COUNT 5.02 mill/uL (4.7-6.1); WHITE BLOOD COUNT 11.6 x1000/uL (4.5-11.0)
[2024-08-01 07:01] LABS: CHLORIDE 101 mEq/L (98-107); POTASSIUM 4.3 mEq/L (3.5-5.1); SODIUM 138 mEq/L (136-145)
[2024-08-01 07:02] LABS: CALCIUM 9.2 mg/dL (8.7-10.4); CARBON DIOXIDE 27 mEq/L (21-32)
[2024-08-01 07:07] LABS: CREATININE 0.8 mg/dL (0.6-1.3); GLUCOSE 108 mg/dL (70-105); UREA NITROGEN BLOOD 16 mg/dL (9-23)
[2024-08-01 10:22] VITALS: BP 144/91; PULSE 103; RESP 23; TEMP 37.1; O2SAT 98
== END 2024-08-01 10:40 ==
LOC: ER 05:13 → EDBEDREQ 06:42 → ER 10:40
DX: J45.901 Unspecified asthma with (acute) exacerbation (principal); F41.9 Anxiety disorder, unspecified; Z79.899 Other long term (current) drug therapy
CPT/HCPCS: 80048; 85025; 36415; 71045; 94640; 93005; 96365; 96375; 99285; J3475; J2919; Z7610 ×5; 94070